=== PATIENT | female | born 2000 | race Caucasian/White ===

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

== ENCOUNTER 2022-08-24 00:13 | Day surgery (SDC) | payer OTHER, BC, SELFPAY ==
[2022-08-14 15:41] VITALS: BMI 24.9
--- NOTE | 2022-08-24 11:05 | WPDHPUPDATE1 ---
History and Physical Update Update Date/Time: 08/24/22 11:05 History and Physical has been reviewed, including an updated exam of the patient. There are NO changes in the patient's condition. Risks, benefits, and alternatives have been discussed and questions answered. Patient agrees to proceed with procedure. Iron studies now confirmed the patient has iron deficiency.
[2022-08-24 11:12] VITALS: BP 121/65; PULSE 78; RESP 18; TEMP 36.4; O2SAT 98
[2022-08-24] MEDS: LACTATED RINGERS 1,000 ML 150 ML IV CONT (11:23)
--- NOTE | 2022-08-24 12:50 | WPDANESEPPF ---
Anes - Initial Pre Proc Eval Procedure: Operation Date: 08/24/22 12:30 Proposed Procedures p Esophagogastroduodenoscopy & Colonoscopy - Martínez Moreau MD Date/Time: 08/24/22 12:50 Surgeon: Martínez Moreau MD Pre Op Diagnosis: foreign body alimentary tract(part unspecified) Patient Data Age: 21 Gender: F Height: 1.65 m Weight: 70.1 kg Last Vital Signs Temp 97.6 F 08/24/22 11:12 Pulse 78 08/24/22 11:12 Resp 18 08/24/22 11:12 BP 121/65 08/24/22 11:12 Pulse Ox 98 08/24/22 11:12 O2 Del Method Room Air 08/24/22 11:12 Allergies Allergy/AdvReac Type Severity Reaction Status Date / Time No Known Allergies Allergy Verified 08/24/22 11:09 Home Medications Medication Instructions Recorded Confirmed Type albuterol 90 mcg/actuation aerosol 90 mcg inhalation .PRN PRN 01/03/21 08/14/22 History inhaler Shortness Of Breath Or Wheezing triamcinolone acetonide 55 55 mcg intranasal .PRN PRN Allergy 01/03/21 08/14/22 History mcg/actuation nasal spray,aerosol Symptoms omeprazole 40 mg capsule,delayed 40 mg PO DAILY 02/27/21 08/14/22 History release escitalopram oxalate 20 mg tablet 20 mg PO DAILY 08/12/22 08/14/22 History (Lexapro) hydroxyzine HCl 25 mg tablet 25 mg PO BID PRN Anxiety 08/12/22 08/14/22 History norgestimate 0.25 mg-ethinyl 1 tablet PO DAILY 08/12/22 08/14/22 History estradiol 35 mcg tablet (Estarylla) ondansetron 8 mg disintegrating 8 mg PO Q12H PRN Nausea 08/12/22 08/14/22 History tablet ferrous sulfate 325 mg (65 mg 325 mg PO BID #60 tabs 08/14/22 08/14/22 Rx iron) tablet Patient hx anesthesia problems: none Family hx anesthesia problems: none Results Review: All pre-operative results and documents have been reviewed as part of the pre-operative evaluation. [facility] Past Medical History Medical History Acute foot pain Anemia Anxiety Asthma Chest tightness Chronic GERD Claustrophobia Coughing Cuboid fracture with nonunion Cuboid fracture with routine healing Right foot pain Vision abnormalities Vision changes Wears glasses Wheezing Family History Family History Unknown Asthma Cardiovascular disease Kidney disease Diabetes mellitus Depression Other Heart disease Social History Social History Smoking status: Never smoker Alcohol intake: never Substance use: never Substance use type: marijuana Other substance usage details: DAILY SMOKES AND USES EDIBLES Living arrangements: with family Spiritual care concerns: No Anes - Eval Final PreProcedure Day of Procedure 08/24/22 12:50 Patient weight: overweight Heart: regular rate and rhythm Lungs: clear to auscultation Airway: Mallampati scale class II Neurological: alert and oriented Last oral intake: >/= 8 hours ASA classification: II Emergent: no Anesthetic plan: proceed Anesthesia type and monitoring: general GIVS and standard monitoring Results Review: All pre-operative results and documents have been reviewed as part of the pre-operative evaluation. Informed Consent: The patient's anesthetic plan and its attendant risks and benefits were discussed with the patient/family/POA. Questions were solicited and answers provided to the satisfaction of the patient/family/POA.
[2022-08-24] MEDS: SIMETHICONE ORAL SUSPENSION 20 MG/0.3 ML 30 ML BOTTLE 0.6 ML IRRIGATION (13:12)
--- NOTE | 2022-08-24 13:24 | SUR.OPER ---
EGD START 1306, END 1309 COLONOSCOPY START 1315, END 1323
[2022-08-24 13:28] VITALS: BP 106/57; PULSE 83; RESP 20; O2SAT 98
[2022-08-24 13:38] VITALS: BP 106/64; PULSE 76; RESP 15; O2SAT 99
[2022-08-24 13:48] VITALS: BP 111/68; PULSE 81; RESP 20; O2SAT 98
== END 2022-08-24 13:57 | disposition home or self-care (01) ==
PROVIDERS: PCP Pediatrics; Visit Provider Internal Medicine Gastroenterology
PROC: 0DJ08ZZ Inspection of Upper Intestinal Tract, Via Natural or Artificial Opening Endoscopic (ICD-10-PCS; CPT 43235; principal; 2022-08-24 12:30)
DX: D50.9 Iron deficiency anemia, unspecified (principal); K64.8 Other hemorrhoids; R11.0 Nausea; J45.909 Unspecified asthma, uncomplicated; K21.9 Gastro-esophageal reflux disease without esophagitis; F41.9 Anxiety disorder, unspecified; Z79.51 Long term (current) use of inhaled steroids; F12.90 Cannabis use, unspecified, uncomplicated
CPT/HCPCS: 45378; 43239; 87081; J2405; J2704; J3010; J7120

== ENCOUNTER 2022-09-03 11:44 | Outpatient (CLI) | payer OTHER, BC, SELFPAY ==
--- NOTE | ~2022-09-03 | NM_ITS ---
EXAM: NM gastric emptying study DATE: 09/03/2022 16:58 INDICATION: Nausea. TECHNIQUE: A gastric emptying study was performed using the methodology of Taurus MCKENNA, et al. J Nucl Med 2007; 48:568-572. The patient was given a meal consisting of 2 scrambled eggs labeled with 0.944 mCi Tc-99m sulfur colloid, 2 slices of toast, two packages of jam, and approximately 120 mL of water . Simultaneous anterior and posterior 1-min images of the abdomen were obtained with the patient supi ne at multiple time points over a total period of 4 hours. The geometric mean of anterior and posteri or views was determined, and the percentage retention was calculated for each time point. COMPARISON: None. FINDINGS: Gastric retention of the radiotracer-labeled meal was 43%, 25%, and 1% at the 1-hour, 2-ho ur, and 4-hour time points, respectively. With this technique, apparent rapid gastric emptying is sug gested by <30% gastric retention at 1 hour. Delayed gastric emptying is defined by gastric retention of >90% at 1 hour, >60% retention at 2 hours, or >10% retention at 4 hours. IMPRESSION: 1. Normal gastric emptying. Reviewed, dictated and finalized at location A. T OF WAY MAN IMPRESSION: 1. Normal gastric emptying.
== END 2022-09-03 11:45 | disposition home or self-care (01) ==
PROVIDERS: PCP Pediatrics; Visit Provider Internal Medicine Gastroenterology
DX: R71.8 Other abnormality of red blood cells (principal); T18.9XXA Foreign body of alimentary tract, part unspecified, initial encounter; R11.0 Nausea
CPT/HCPCS: 78264; A9541